=== PATIENT | male | born 2005 | race African-American/Black ===

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

== ENCOUNTER 2025-08-01 09:12 | Emergency (ER) | payer OTHER, BC ==
[~2025-08-01] VITALS: Ht 172.7 cm; Wt 99.8 kg
[~2025-08-01 09:12] MED LIST: CYCL10TA24 PO; OXYC-128 PO
[2025-08-01 09:28] VITALS: BP 117/70
[2025-08-01] MEDS ORDERED: ACETAMINOPHEN 500 MG TABLET ONE (09:42)
[2025-08-01] MEDS ORDERED: IBUPROFEN 400 MG TABLET ONE (09:42)
[2025-08-01] MEDS: IBUPROFEN 400 MG TABLET PO ONE (09:45)
[2025-08-01] MEDS: ACETAMINOPHEN 500 MG TABLET PO ONE (09:46)
[2025-08-01 10:44] VITALS: BP 110/65; O2SAT 98
[2025-08-01] MEDS ORDERED: KETOROLAC TROMETHAMINE 30 MG INJ IM ONE (20:45)
[2025-08-01] MEDS ORDERED: NAPR-1194 PO (23:09)
[2025-08-01] MEDS ORDERED: CYCL10TA24 PO (23:09)
== END 2025-08-01 10:46 | disposition home or self-care (01) ==
LOC: ER 09:12
DX: S40.011A Contusion of right shoulder, initial encounter (principal); Z88.7 Allergy status to serum and vaccine; V43.62XA Car passenger injured in collision with other type car in traffic accident, initial encounter; Y93.89 Activity, other specified; Y92.410 Unspecified street and highway as the place of occurrence of the external cause; Y99.9 Unspecified external cause status
CPT/HCPCS: 72040; 73020; A4606; A4663; A9150

== ENCOUNTER 2025-08-01 20:13 | Emergency (ER) | payer OTHER, BC ==
[~2025-08-01] VITALS: Ht 185.4 cm; Wt 145.1 kg
[2025-08-01] MEDS ORDERED: KETOROLAC TROMETHAMINE 30 MG INJ ONE (21:02)
[2025-08-01] MEDS: KETOROLAC TROMETHAMINE 30 MG INJ IM ONE (21:12)
[2025-08-01 23:00] VITALS: BP 130/100
[2025-08-01] MEDS ORDERED: CYCL10TA24 PO (23:09)
[2025-08-01] MEDS ORDERED: NAPR-1194 PO (23:09)
[2025-08-01 23:21] VITALS: BP 130/100; TEMP 97.9; O2SAT 96
== END 2025-08-01 23:23 | disposition home or self-care (01) ==
LOC: ER 20:17
DX: S16.1XXA Strain of muscle, fascia and tendon at neck level, initial encounter (principal); S46.911A Strain of unspecified muscle, fascia and tendon at shoulder and upper arm level, right arm, initial encounter; M25.511 Pain in right shoulder; Z88.7 Allergy status to serum and vaccine; V43.62XA Car passenger injured in collision with other type car in traffic accident, initial encounter; Y93.89 Activity, other specified; Y92.410 Unspecified street and highway as the place of occurrence of the external cause; Y99.9 Unspecified external cause status
CPT/HCPCS: 99285; 72040; 72072; 72100; 96372; J1885; A4606; A4663